=== PATIENT | female | born 1985 | race Caucasian/White ===

== ENCOUNTER 2019-09-15 17:33 | Emergency (ER) | payer MEDICAID ==
[~2019-09-15] VITALS: Ht 167 cm; Wt 95.5 kg
[~2019-09-15 17:33] MED LIST: ACHD5005 PO; AGM875T PO; ALPR-557 GT; ALPR1TAB7 PO; AMOX500C2 PO; CEPH500C PO; CRUT1EAC7 MC; CYCL10TA9 PO; DESV50TA PO; DOXY100T2 PO; HYDR-3583 PO; HYDR-3720 PO; HYDR-757 PO; HYDR1CAP2; HYDR1CAP2 PO; HYDR1TAB PO; HYDR25CA5; LISD70CA3 PO; NAPR-243 PO; NAPR550T PO; NITR-65 PO; ONDAN4ODT PO; ORPH100T PO; OXYC-12 PO; PENI500T PO; PRD20T PO; PREN1TAB39 PO; PROP1TAB77 PO; SULF1TAB38 PO; TRAM-21 PO; TRAM-42 PO; TRAM50TA2 PO; TRM50T PO
[2019-09-15] MEDS ORDERED: LIDOCAINE 2% VISCOUS 15 ML UDC PO ONE (18:15)
[2019-09-15] MEDS ORDERED: AMOX500C2 PO (18:28)
[2019-09-15] MEDS ORDERED: BENZ9GEL3 MM (18:28)
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
[2019-09-15 18:43] VITALS: BP 134/83
== END 2019-09-15 18:46 | disposition home or self-care (01) ==
LOC: EDUNIT# 17:33 → ER 17:34
DX: S02.5XXA Fracture of tooth (traumatic), initial encounter for closed fracture (principal); F41.9 Anxiety disorder, unspecified; F32.9 Major depressive disorder, single episode, unspecified; Z88.6 Allergy status to analgesic agent; Z87.891 Personal history of nicotine dependence; X58.XXXA Exposure to other specified factors, initial encounter
CPT/HCPCS: 99283